=== PATIENT | male | born 1980 | race Caucasian/White ===

== ENCOUNTER 2017-06-14 06:06 | Day surgery (SDC) | payer BC ==
[~2017-06-14] VITALS: Ht 172.7 cm; Wt 79.6 kg
[2017-06-14] MEDS ORDERED: TRAZODONE (07:19)
[2017-06-14] MEDS ORDERED: NORCO (07:19)
[2017-06-14] MEDS ORDERED: LAMOTRIGINE (07:19)
[2017-06-14] MEDS ORDERED: SINGULAIR (07:19)
[2017-06-14] MEDS ORDERED: SOMA (07:19)
[2017-06-14] MEDS ORDERED: GABAPENTIN (07:19)
[2017-06-14] MEDS ORDERED: ADVAIR (07:19)
[2017-06-14 07:20] VITALS: Ht 172.7 cm; Wt 79.6 kg
[2017-06-14 07:48] VITALS: BP 109/65; PULSE 82; RESP 12
[2017-06-14] MEDS ORDERED: PROPOFOL 20 ML ONE (07:55)
[2017-06-14 08:45] VITALS: BP 109/69; PULSE 76; RESP 12
--- NOTE | 2017-06-15 04:08 | GILP ---
DATE OF PROCEDURE: 06/14/2017 PROCEDURE PERFORMED: Esophagogastroduodenoscopy and biopsy. SURGEON: Heike Parker MD PREOPERATIVE DIAGNOSIS: 1. Abdominal pain. 2. Weight loss. POSTOPERATIVE DIAGNOSES: 1. Gastritis with erosions. 2. Gastric mucosal biopsies were taken for Helicobacter pylori test. INDICATION: Mr. Dexter Stevens is a 36-year-old male patient who had upper abdominal pain not responding to therapy. Patient was also complaining of weight loss. The patient had abdominal CT scan and ultrasound and they were normal. The patient was taking pain medications including [place] for back pain. The patient was scheduled for endoscopy examination for further evaluation. Because of the narcotics, the patient has been taking the patient was scheduled for monitored anesthesia care for the procedure. The procedure and possible complications were well explained to the patient. He understood and consented to the procedure. DESCRIPTION OF PROCEDURE: Under the influence of anesthesia, the gastroscope was carefully introduced into the esophagus. Under direct vision it was advanced to the stomach into the pylorus into the duodenal bulb, and descending duodenum. FINDINGS: Esophagus mucosa was normal. Stomach, the patient had gastritis with erosions. Gastric mucosal biopsies were taken for Helicobacter pylori test. Duodenum was normal. He tolerated the procedure very well. There was no complication from the procedure. At the end of procedure he was awake with stable vital signs. He was discharged home in the care of his family. IMPRESSION: 1. Gastritis with erosions. 2. Gastric mucosal biopsies were taken for Helicobacter pylori test. PLAN: 1. Protonix 40 mg p.o. q.a.m. 2. Await Helicobacter pylori test report. Dictated By: MD IFEOMA Brown/shar/jaylen /Document#: [id number] GAGAN
== END 2017-06-14 13:55 | disposition home or self-care (01) ==
LOC: GIL 06:06
PROVIDERS: ATTEND Internal Medicine Gastroenterology
DX: K29.60 Other gastritis without bleeding (principal); F41.9 Anxiety disorder, unspecified; J45.909 Unspecified asthma, uncomplicated